=== PATIENT | male | born 1980 | race Caucasian/White ===

== ENCOUNTER → 2021-07-30 08:38 | Outpatient (CLI) | payer OTHER, SELFPAY ==
[2021-07-31 07:01] LABS: Covid-19 Nasal PCR Sendout Lex NOT DETECTED
== END ==
PROVIDERS: Visit Provider Nurse Practitioner
DX: Z20.822 Contact with and (suspected) exposure to COVID-19 (principal)
CPT/HCPCS: C9803; U0004; U0005

== ENCOUNTER 2022-04-24 09:16 | Emergency (ER) | payer OTHER, SELFPAY ==
[2022-04-24 09:28] VITALS: BP 140/83; PULSE 74; RESP 18; TEMP 36.9; O2SAT 100; BMI 29.8
--- NOTE | 2022-04-24 09:42 | EXP.UTC ---
Discharge Plan Disposition Patient Disposition: Home, Self-Care Condition: Good Prescriptions Prescriptions: New ondansetron 4 mg Tablet,Disintegrating 4 mg PO Q8H PRN (Reason: Nausea) Qty: 20 0RF Referrals Follow up/Referrals: Provider,Referral, [Primary Care Provider] - See instructions Activity Restrictions/Add. Instructions Additional Instructions/Restrictions: Drink plenty of fluids. Take tylenol or ibuprofen for pain or fever. Take the medications as directed. Follow up with your regular doctor. GO TO THE ER FOR ANY WORSENING SYMPTOMS Clinical Impressions Clinical Impression: Gastroenteritis Stand Alone Forms Stand Alone Forms: Work/School Release Instructions Patient Instructions: Viral Gastroenteritis, DI for Viral Gastroenteritis -- Adult, Ondansetron Discharge ED Provider: Kahlil Graham [facility] General Stated complaint: Nausea Mode of Arrival: Ambulatory Source of Information: Patient Limitations: No Limitations Time Seen by Provider: 04/24/22 09:42 Description of Symptoms (Recalled from Triage Doc. by RN): pt c/o nausea x2 days. pt denies n/v/d. pt denies abd pain. HEENT Symptoms (Recalled from RN notes): No Resp Symptoms (Recalled from RN notes): No Skin Symptoms (Recalled from RN notes): No MS Symptoms (Recalled from RN notes): No Functional Status (Recalled from RN notes): na History of Present Illness Provider Complaint: He c/o nausea for the past 2 days. He denies any abdominal pain or discomfort. He denies diarrhea or constipation. He denies any fever, chills or body aches. No one else is sick in his family. Related Data Previous Rx's Medication Instructions Recorded ondansetron 4 mg disintegrating 4 mg PO Q8H PRN Nausea #20 tabs 04/24/22 tablet Allergies Allergy/AdvReac Type Severity Reaction Status Date / Time No Known Allergies Allergy Verified 04/24/22 09:31 Worker's Comp Is this a Worker's Comp case?: No PFSH PFSH Social History Smoking Status: Never smoker alcohol intake: never current occupational status: employed Travel in the last 8 weeks: None ROS Obtained: Yes All systems reviewed & no additional complaints except as documented Constitutional Constitutional: Denies chills, Denies fever(s) and Reports poor appetite ENT Ears, Nose, Mouth, and Throat: Denies dizziness and Denies sore throat Cardiovascular Cardiovascular: Denies dyspnea Respiratory Respiratory: Denies chest congestion, Denies cough and Denies dyspnea Gastrointestinal Gastrointestingal: Reports as per HPI and nausea; Denies abdominal pain, constipation, cramping or vomiting Genitourinary Male Genitourinary: Denies hematuria, Denies urinary frequency, Denies urinary hesitancy, Denies urinary incontinence and Denies urinary urgency Musculoskeletal Musculoskeletal: Denies arthralgias Integumentary/Breasts Skin/Breast: Denies rash Neurologic Neurologic: Denies dizziness Physical Exam General General appearance: alert and in no apparent distress Head Head exam: atraumatic and normocephalic Eye Eye exam: Present normal appearance, PERRL and EOMI ENT ENT exam: Present normal exam, normal oropharynx, mucous membranes moist, TM's normal bilaterally and normal external ear exam Neck Neck exam: Present normal inspection, full ROM and trachea midline; Absent tenderness, meningismus or lymphadenopathy Chest Chest inspection: Present normal inspection and symmetric chest wall rise; Absent tenderness, rash or abscess Respiratory Respiratory exam: Present normal lung sounds bilaterally; Absent respiratory distress, wheezes or stridor Cardiovascular Cardiovascular exam: Present regular rate and normal rhythm; Absent irregular rhythm, systolic murmur, diastolic murmur or JVD Abdominal Exam Abdominal exam: Present soft and normal bowel sounds; Absent distention, tenderness, guarding, rebound, rigidity, psoas sign, obturator si
[2022-04-24 10:04] VITALS: BP 133/78; PULSE 78; RESP 20; TEMP 36.9; O2SAT 100
== END 2022-04-24 10:08 | disposition home or self-care (01) ==
PROVIDERS: Emergency Provider Nurse Practitioner Family
DX: K52.9 Noninfective gastroenteritis and colitis, unspecified (principal)
CPT/HCPCS: 99212; G0463

== ENCOUNTER 2022-09-16 10:14 | Emergency (ER) | payer OTHER, SELFPAY ==
--- NOTE | 2022-09-16 10:31 | XR_ITS ---
FINAL REPORT TECHNIQUE: Chest PA & Lateral CLINICAL HISTORY: hemoptysis FINDINGS: 2 views of the chest were performed. The heart size is normal. The mediastinum is within normal limits. There is no acute infiltrate. There are mild chronic changes in the lungs. There are no pleural effusions. There is no pneumothorax. The bony thorax appears intact. IMPRESSION: No acute cardiopulmonary process. Reviewed, Interpreted and Dictated by Rasheed Burton MD Transcribed by Rashard Espinoza Authenticated and [facility]
[2022-09-16 10:32] VITALS: BP 157/87; PULSE 91; RESP 20; TEMP 36.8; O2SAT 96; BMI 28.3
--- NOTE | 2022-09-16 10:50 | HMH.EDGENADL ---
Discharge Plan Disposition Patient Disposition: Home, Self-Care Condition: Good Prescriptions Prescriptions: No Action ondansetron 4 mg Tablet,Disintegrating 4 mg PO Q8H PRN (Reason: Nausea) Qty: 20 0RF Referrals Follow up/Referrals: Moses Dennison [Primary Care Provider] - See instructions Clinical Impressions Clinical Impression: Bronchitis, Cough with hemoptysis Discharge ED Provider: Santos Antoine General Adult HPI General Chief complaint: Upper Respiratory Infection Stated complaint: coughing up blood Time Seen by Provider: 09/16/22 10:25 Mode of Arrival: Ambulatory Source of Information: Patient Limitations: No Limitations Description of Symptoms (Recalled from ER Triage Doc. by RN): Pt c/o hemoptysis x 3 days in setting of recent double pneumonia w Levaquin Rx course x2; NAD History of Present Illness HPI narrative: 42yo M evaluated for mild hemoptysis. Patient reports being treated for pneumonia currently. Taking Levaquin. States he feels much better than he did a few days ago but has had some very mild bright red hemoptysis. Denies any chest pain or shortness of breath. Continues to smoke at least a pack per day. Related Data Previous Rx's Medication Instructions Recorded ondansetron 4 mg disintegrating 4 mg PO Q8H PRN Nausea #20 tabs 04/24/22 tablet Allergies Allergy/AdvReac Type Severity Reaction Status Date / Time No Known Allergies Allergy Verified 04/24/22 09:31 [facility] Disclaimer: The information contained in this section may have been updated after the patient was seen, as this information can be updated by other users. Social History Smoking Status: Current every day smoker alcohol intake: never current occupational status: employed Travel in the last 8 weeks: None ROS Obtained: Yes Systems reviewed as appropriate & no additional complaints except as documented Physical Exam General General appearance: alert and in no apparent distress Head Head exam: atraumatic Eye Eye exam: Present normal appearance Respiratory Respiratory exam: Present normal lung sounds bilaterally; Absent respiratory distress, wheezes, stridor or accessory muscle use Cardiovascular Cardiovascular exam: Present regular rate Abdominal Exam Abdominal exam: Present soft Extremities Exam Extremities exam: Present normal inspection Back Exam Back exam: Present normal inspection Neurological Exam Neurological exam: Present alert, oriented X3 and CN II-XII intact Psychiatric Psychiatric exam: Present normal affect Skin Skin exam: Present warm Medical Decision Making Az Inquiry Pt receiving controlled substance: No Az was queried for this patient: No Vital Signs: 09/16/22 10:32 09/16/22 11:01 Temperature 98.3 F Temperature Source Oral Pulse Rate 81 Pulse Rate [Right Radial] 91 H Respiratory Rate 20 Blood Pressure 131/59 L Blood Pressure [Right Arm] 157/87 H Blood Pressure Mean 83 Blood Pressure Mean [Right Arm] 110 Blood Pressure Source [Right Arm] Automatic Cuff Blood Pressure Position [Right Arm] Supine 02 Sat by Pulse Oximetry 96 95 Oxygen Delivery Method Room Air Room Air Orders (Tests/Meds): ORDERS Category Date Time Status CXR 2 view (NOT portable) [XR chest 2V] Stat Exams 09/16/22 10:31 Taken Radiology Data #1: Image(s): Chest Image Reviewed: Yes I reviewed the patient's radiology image Preliminary Findings: Normal/NAD Medical Decision Narrative: 42yo M evaluated for hemoptysis. Patient is in no acute distress. Physical exam is benign. 2 view chest x-ray obtained and without acute finding. Patient reports he feels much better than he has in the last few days, O2 saturations at least 97% on room air. Appropriate and stable for discharge home. Critical Care Time Critical Care Time Critical Care Time: No Attestation: On 09/16/22, the high
[2022-09-16 11:01] VITALS: BP 131/59; PULSE 81; O2SAT 95
[2022-09-16 11:36] VITALS: BP 131/59; PULSE 81; RESP 18; TEMP 36.8; O2SAT 95
== END 2022-09-16 11:36 | disposition home or self-care (01) ==
PROVIDERS: Emergency Provider Family Medicine; PCP Internal Medicine
DX: R04.2 Hemoptysis (principal); J20.9 Acute bronchitis, unspecified; R05.1 Acute cough
CPT/HCPCS: 71046; 99283; 99284